=== PATIENT | female | born 1950 | race Two or more races ===

== ENCOUNTER 2024-07-18 15:24 | Emergency (ER) | payer OTHER ==
[~2024-07-18] VITALS: Ht 162.6 cm; Wt 69.9 kg
[2024-07-18 17:53] LABS: HEMATOCRIT 41.5 % (36.0-45.00); MEAN CELL VOLUME 90.3 fL (80.00-100.00); MEAN CORPUSCULAR HEMOGLOBIN 30.5 pg (27.00-32.0); MEAN CORPUSCULAR HGB CONC 33.8 g/dl (32.0-36.0); PLATELET COUNT 276 K/uL (150-450); RED BLOOD COUNT 4.59 M/uL (4.00-6.00); RED CELL DISTRIBUTION WIDTH 13.3 % (11.5-14.5)
[2024-07-18] MEDS ORDERED: GILTUSS COUGH-118 M1 PO (19:42)
[2024-07-18] MEDS ORDERED: ZITHROMAX TRI-500 MG PO (19:42)
[2024-07-18] MEDS ORDERED: ACETAMINOPHEN500 M1 PO (19:42)
== END 2024-07-18 21:04 | disposition home or self-care (01) ==
LOC: ER 15:27
PROVIDERS: Preventive Medicine Public Health & General Preventive Medicine
DX: J06.9 Acute upper respiratory infection, unspecified (principal); Z88.8 Allergy status to other drugs, medicaments and biological substances; I10 Essential (primary) hypertension; Z20.822 Contact with and (suspected) exposure to COVID-19